=== PATIENT | male | born 1950 | race Caucasian/White ===

== ENCOUNTER → 2018-01-04 | Outpatient (CLI) | payer MEDICARE, BC ==
[~2018-01-04] MED LIST: ASPIRIN E.C. 8181 MG PO; CRESTOR40 MG PO; DEPO-TESTOS200 MG/M1 IM; LASIX 40MG TABL40 MG PO; LEVAQUIN 750MG750 M1 PO; METFORMIN500 MG PO; MULTIPLE VITAMI1 CAP PO; PROAIR HFA0.09 MG/AC IH; RT SPIRIVA18 MCG IH; TOPROL XL 50MG50 MG PO; VASOTEC 5MG5 MG/TAB PO
== END ==
LOC: COL.RAD 11:18
DX: E11.59 Type 2 diabetes mellitus with other circulatory complications (principal); H81.399 Other peripheral vertigo, unspecified ear; F17.200 Nicotine dependence, unspecified, uncomplicated; G31.9 Degenerative disease of nervous system, unspecified
CPT/HCPCS: Q9967